=== PATIENT | female | born 1975 | race Caucasian/White ===

== ENCOUNTER 2020-12-28 21:14 | Emergency (ER) | payer MEDICARE, OTHER ==
[2020-12-28 21:55] LABS: BASOPHIL 0.9 % (0-2); EOSINOPHIL 4.3 % (0-5); HCT 42.7 % (37.0-47.0); HGB 14.4 g/dl (12.5-16.0); MCH 29.1 pg (25.0-31.0); MCHC 33.7 g/dL (32.0-36.0); MCV 86.3 fL (78.0-100.0); MONOCYTE 8.8 % (0-12); MPV 11.1 fL (6.0-9.5); NEUTROPHIL 53.7 % (41-80); NRBC 0; PLT 304 K/uL (150-400); RBC 4.95 M/uL (4.20-5.40); RDW 13.2 % (11.5-14.0); WBC 8.8 K/uL (4.0-10.5)
[2020-12-28 22:06] LABS: INR 0.98 (0.9-1.2); PROTHROMBIN TIME 12.4 SECONDS (11.8-13.4); PTT 31.3 SECONDS (24.4-34.7)
[2020-12-28 22:07] LABS: D-DIMER 0.51 ug/mLFEU (0.00-0.41)
[2020-12-28 22:18] LABS: PRO-BNP 29 pg/mL (<125)
[2020-12-28 22:19] LABS: ALBUMIN 3.5 g/dL (3.4-5.0); BILIRUBIN - TOTAL 0.3 mg/dL (0.2-1.0); BUN/CREAT RATIO (CALC) 21.4 RATIO; CREATININE 0.7 mg/dL (0.51-0.95); GLOBULIN (CALCULATION) 3.8 g/dL; POTASSIUM 3.7 mmol/L (3.5-5.1); TOTAL PROTEIN 7.3 g/dL (6.4-8.2)
[2020-12-28 22:39] LABS: BILIRUBIN NEGATIVE (NEGATIVE); BLOOD NEGATIVE Ery/uL (NEGATIVE); CLARITY CLEAR (CLEAR); COLOR YELLOW (YELLOW); GLUCOSE (U) NORMAL (NORMAL); LEUKOCYTES NEGATIVE Leu/uL (NEGATIVE); NITRITE NEGATIVE (NEGATIVE); PROTEIN NEGATIVE (NEGATIVE); UROBILINOGEN 0.2 mg/dL (0.2-1.0)
[2020-12-29] MEDS ORDERED: ATARAX25 MG PO (03:00)
[2020-12-29] MEDS ORDERED: SKELAXIN800 MG PO (03:00)
[2020-12-29] MEDS ORDERED: MS CONTIN15 MG PO (03:00)
[2020-12-29] MEDS ORDERED: PHENERGAN25 M1 PO (03:00)
== END 2020-12-29 03:25 | disposition home or self-care (01) ==
LOC: FER 21:14
PROVIDERS: Emergency Medicine Emergency Medical Services
DX: R07.89 Other chest pain (principal); J45.909 Unspecified asthma, uncomplicated; F17.200 Nicotine dependence, unspecified, uncomplicated; Z88.0 Allergy status to penicillin; Z20.822 Contact with and (suspected) exposure to COVID-19
CPT/HCPCS: 36415; 71045; 71275; 80053; 81003; 82550; 83880; 84484; 85025; 85379; 85610; 85730; 93005; J1170; J1885; J2270; J2405; J3010; Q0169; U0002

== ENCOUNTER 2021-03-17 17:15 | Emergency (ER) | payer MEDICARE, OTHER ==
[~2021-03-17 17:15] MED LIST: ATARAX25 MG PO; MS CONTIN15 MG PO; PHENERGAN25 M1 PO; SKELAXIN800 MG PO
[2021-03-17 20:34] LABS: BASOPHIL 0.6 % (0-2); EOSINOPHIL 3.7 % (0-5); HCT 43.5 % (37.0-47.0); HGB 14.2 g/dl (12.5-16.0); LYMPHOCYTE 30.1 % (15-48); MCH 28.8 pg (25.0-31.0); MCHC 32.6 g/dL (32.0-36.0); MCV 88.2 fL (78.0-100.0); MONOCYTE 6.9 % (0-12); MPV 11.9 fL (6.0-9.5); NEUTROPHIL 58.4 % (41-80); NRBC 0; PLT 284 K/uL (150-400); RBC 4.93 M/uL (4.20-5.40); RDW 14.4 % (11.5-14.0); WBC 9.5 K/uL (4.0-10.5)
[2021-03-17 20:35] LABS: BILIRUBIN NEGATIVE (NEGATIVE); BLOOD NEGATIVE Ery/uL (NEGATIVE); CLARITY CLEAR (CLEAR); COLOR YELLOW (YELLOW); GLUCOSE (U) NORMAL (NORMAL); LEUKOCYTES NEGATIVE Leu/uL (NEGATIVE); NITRITE NEGATIVE (NEGATIVE); PROTEIN NEGATIVE (NEGATIVE)
[2021-03-17 20:47] LABS: INR 1.01 (0.9-1.2); PROTHROMBIN TIME 12.7 SECONDS (11.8-13.4)
[2021-03-17 20:49] LABS: ALBUMIN 3.7 g/dL (3.4-5.0); BILIRUBIN - TOTAL 0.3 mg/dL (0.2-1.0); BUN/CREAT RATIO (CALC) 17.8 RATIO; CREATININE 0.73 mg/dL (0.51-0.95); GLOBULIN (CALCULATION) 3.8 g/dL; POTASSIUM 3.6 mmol/L (3.5-5.1); TOTAL PROTEIN 7.5 g/dL (6.4-8.2)
== END 2021-03-17 22:26 | disposition home or self-care (01) ==
LOC: FER 17:15
PROVIDERS: Emergency Medicine
DX: G89.29 Other chronic pain (principal); M54.50 Low back pain, unspecified; Z88.0 Allergy status to penicillin; F17.200 Nicotine dependence, unspecified, uncomplicated
CPT/HCPCS: 36415; 72131; 80053; 81003; 85025; 85610; J1885; J2405

== ENCOUNTER 2021-08-21 18:26 | Emergency (ER) | payer MEDICARE, OTHER ==
[2021-08-21 20:52] LABS: BASOPHIL 0.5 % (0-2); EOSINOPHIL 0 % (0-5); HGB 16.4 g/dl (12.5-16.0); LYMPHOCYTE 10.7 % (15-48); MCH 30.5 pg (25.0-31.0); MCHC 34.2 g/dL (32.0-36.0); MCV 89.4 fL (78.0-100.0); MONOCYTE 4.2 % (0-12); MPV 10.9 fL (6.0-9.5); NRBC 0; PLT 350 K/uL (150-400); RBC 5.37 M/uL (4.20-5.40); RDW 13.3 % (11.5-14.0); WBC 12.8 K/uL (4.0-10.5)
[2021-08-21 21:15] LABS: ALBUMIN 3.8 g/dL (3.4-5.0); BILIRUBIN - TOTAL 0.3 mg/dL (0.2-1.0); BUN/CREAT RATIO (CALC) 13.2 RATIO; CREATININE 0.76 mg/dL (0.51-0.95); GLOBULIN (CALCULATION) 4.5 g/dL; POTASSIUM 3.7 mmol/L (3.5-5.1); TOTAL PROTEIN 8.3 g/dL (6.4-8.2)
[2021-08-21] MEDS ORDERED: PERCOCET 5-3251 EACH PO (23:01)
[2021-08-21] MEDS ORDERED: PHENERGAN25 M1 PO (23:01)
[2021-08-21] MEDS ORDERED: ONDANSETRON ODT4 MG PO (23:01)
== END 2021-08-21 23:30 | disposition home or self-care (01) ==
LOC: FER 18:26
PROVIDERS: Internal Medicine
DX: M54.50 Low back pain, unspecified (principal); G89.29 Other chronic pain; R11.2 Nausea with vomiting, unspecified; I10 Essential (primary) hypertension; F17.210 Nicotine dependence, cigarettes, uncomplicated; Z88.0 Allergy status to penicillin
CPT/HCPCS: 36415; 72131; 80053; 83690; 85025; J1170; J2405; J2550

== ENCOUNTER 2021-11-13 10:43 | Emergency (ER) | payer MEDICARE, OTHER ==
[~2021-11-13 10:43] MED LIST changes: +ONDANSETRON ODT4 MG PO; +PERCOCET 5-3251 EACH PO
[2021-11-13 11:56] LABS: BASOPHIL 1.1 % (0-2); EOSINOPHIL 3.8 % (0-5); HCT 43.2 % (37.0-47.0); LYMPHOCYTE 29.8 % (15-48); MCH 30.2 pg (25.0-31.0); MCHC 34.7 g/dL (32.0-36.0); MCV 86.9 fL (78.0-100.0); NEUTROPHIL 59.1 % (41-80); NRBC 0; PLT 323 K/uL (150-400); RBC 4.97 M/uL (4.20-5.40); RDW 13.5 % (11.5-14.0); WBC 8.8 K/uL (4.0-10.5)
[2021-11-13 12:04] LABS: BUN/CREAT RATIO (CALC) 21.2 RATIO; CREATININE 0.8 mg/dL (0.51-0.95); POTASSIUM 2.5 mmol/L (3.5-5.1)
[2021-11-13 12:43] LABS: BILIRUBIN NEGATIVE (NEGATIVE); BLOOD NEGATIVE Ery/uL (NEGATIVE); CLARITY HAZY (CLEAR); COLOR YELLOW (YELLOW); GLUCOSE (U) NORMAL (NORMAL); LEUKOCYTES NEGATIVE Leu/uL (NEGATIVE); NITRITE NEGATIVE (NEGATIVE); PROTEIN NEGATIVE (NEGATIVE); SPECIFIC GRAVITY >=1.030 (1.001-1.030); UROBILINOGEN 0.2 mg/dL (0.2-1.0)
[2021-11-13] MEDS ORDERED: K-TAB ER20 MEQ PO (14:22)
[2021-11-13] MEDS ORDERED: DIFLUCAN150 MG PO (14:22)
[2021-11-13 14:33] LABS: HIV 1/2 AB NON-REACITVE (NON-REACT); HIV-1 P24 NON-REACITVE (NON-REACT)
[2021-11-16 07:06] LABS: CHLAMYDIA TRACHOMATIS, NAA Negative (Negative); NEISSERIA GONORRHOEAE, NAA Negative (Negative)
== END 2021-11-13 15:34 | disposition home or self-care (01) ==
LOC: FER 10:43
PROVIDERS: Emergency Medicine
DX: B37.3 Candidiasis of vulva and vagina (principal); E87.6 Hypokalemia; R11.2 Nausea with vomiting, unspecified; Z88.0 Allergy status to penicillin
CPT/HCPCS: 36415; 80048; 81003; 85025; 87088; 87210; 87491; 87591; J1170; J2405; J3480; J7030